=== PATIENT | female | born 1930 | race African-American/Black ===

== ENCOUNTER 2017-07-26 11:12 | Day surgery (SDC) | payer MEDICARE ==
[2017-07-25 13:39] VITALS: BMI 24.5
[2017-07-26] MEDS ORDERED: Midazolam HCl 2 mg/2 ml Vial ONE (12:42)
[2017-07-26] MEDS ORDERED: Fentanyl 100 MCG/2 ML VIAL ONE (12:42)
[2017-07-26 13:04] LABS: #Lymphocytes 1.2 thou/uL (1.20-3.40); #Monocytes 0.4 thou/uL (0.11-0.59); %Basophils 0.6 % (0.0-1.0); %Eosinophils 0.4 % (0.0-10.0); %Lymphocytes 21.7 % (21.0-51.0); %Monocytes 7.7 % (0.0-10.0); %Neutrophils 69.5 % (42.0-75.0); Hemoglobin 11.8 g/dL (12.0-16.0); Mean Corpuscular HGB CONC 32.2 g/dL (32.0-36.0); Mean Corpuscular Hemoglobin 31.5 pg (27.0-31.0); Mean Corpuscular Volume 97.9 fl (81.0-99.0); Mean Platelet Volume 7.3 fL (7.4-10.4); Platelet Count 195 thou/uL (130-400); Red Blood Cell (RBC) Count 3.75 mill/uL (4.20-5.40); White Blood Cell (WBC) Count 5.7 thou/uL (4.8-10.8)
[2017-07-26 13:09] LABS: INR-International Normal Ratio 1.2; PTT 34.1 SEC (22.9-36.1); Prothrombin Time 15.5 SEC (12.0-14.7)
[2017-07-26 13:25] LABS: Anion Gap 10 mmol/L (10-20); BUN (Urea Nitrogen) 18 mg/dL (9.8-20.1); Calc. Creatinine Clearance 39 mL/min (70-130); Calcium 9.7 mg/dL (7.8-10.44); Carbon Dioxide 27 mmol/L (23-31); Chloride 105 mmol/L (98-107); Estimated GFR-MDRD 66; Glucose 105 mg/dL (83-110); Potassium 4.3 mmol/L (3.5-5.1); Sodium 138 mmol/L (136-145)
[2017-07-26] MEDS ORDERED: Diprivan 40 ML ONE (13:32)
[2017-07-26] MEDS ORDERED: PHENYLEPHRINE-NS 100 MCG/ML 10 ML SYRINGE ONE (14:16)
[2017-07-26] MEDS ORDERED: Ondansetron HCl/PF 4 MG/2 ML Vial ONE (14:16)
[2017-07-26] MEDS ORDERED: Propofol 200 MG/20 ML VIAL ONE (14:16)
[2017-07-26] MEDS ORDERED: DOPamine 400 MG/D5W 250 ML 250 ML ONE (14:56)
[2017-07-26] MEDS ORDERED: Heparin 10,000 UNITS/1 ML VIAL ONE (14:56)
--- NOTE | 2017-07-26 15:56 | ECHO ---
REASON FOR PROCEDURE: The patient presented with sustained atrial flutter. She was placed on oral anticoagulation, it was relatively recent and has risk features including ----- for clots. Here for JEANNE to prove otherwise. PROCEDURE: The patient received deep sedation by Anesthesia specialist. After adequate sedation achieved, the s tandard transesophageal echocardiogram probe was passed into the esophagus without difficulty. Samina nt tolerated procedure well, no complications. RESULTS: Left atrium is moderately enlarged about 5 cm in horizontal diameter. Left atrial appendage well visu alized. Contains no clot, but a spontaneous echo contrast was seen throughout the left appendage. Agustín ocities up to 50 cm per second which is adequate. The left ventricular function is a near normal at 50-55% with no wall motion abnormalities seen. The mitral valve has trivial regurgitation only. The right-sided chambers are nondilated. Mild tricuspid regurgitation seen with a peak TR velocity is ab out 2.2 meters per second. Aortic valve has three leaflets, mild sclerosis, but not stenotic. No si gnificant regurgitation seen either. The pulmonary valve also noted and appear significantly regurg itant. The pericardial space is without effusion. The visualized portion of the ascending aorta abo ut 3.2 cm in diameter. The descending aorta shows signs of atherosclerotic disease, but no sessile at heroma is seen. CONCLUSION: 1. No intracardiac clots, but spontaneous echo contrast is seen. 2. Moderate left atrial enlargement. 3. Near normal left ventricular function about 50-55%, improved from prior studies. 4. Mild tricuspid regurgitation without evidence of pulmonary hypertension. 5. No other valvular heart disease is identified. PLAN: 1. Proceed with ablation.
--- NOTE | 2017-07-28 09:19 | EKG ---
Test Reason : PREOP Blood Pressure : / mmHG Vent. Rate : 085 BPM Atrial Rate : 242 BPM P-R Int : 000 ms QRS Dur : 080 ms QT Int : 350 ms P-R-T Axes : 000 -14 -55 degrees QTc Int : 416 ms Atrial flutter with variable A-V block Nonspecific ST and T wave abnormality Abnormal ECG No previous ECGs available Confirmed by ESTRELLA RANGEL ([id number]) on 07/28/2017 9:19:06 AM Referred By: GUSTAVO Confirmed By:ESTRELLA RANGEL
--- NOTE | 2017-07-29 07:49 | CCLSPC ---
ELECTROPHYSIOLOGY STUDY AND RADIOFREQUENCY ABLATION REPORT DATE OF SERVICE: 07/26/2017 REFERRING PHYSICIAN: Anders Salas M.D. REASON FOR PROCEDURE: Ms. Beltrán is an 87-year-old woman with history of newly found atrial flutter which is persisting. She underwent JEANNE prior to procedure and was seeing no intracardiac clots and improvement of LV function to near normal range, hence rate controlled. She has been on Xarelto up until the procedure, recently started. PROCEDURE IN DETAIL: The patient received deep sedation by Anesthesia specialist. After adequate level of sedation achieved in the right femoral vein , this area was prepped, draped and anesthetized in the usual fashion. The right femoral vein was accessed after lidocaine anesthesia with ultrasound guidance x2, two 8 Turkish short sheaths were introduced. With a Decapolar CS catheter was advanced to the RV, RA, and His bundle and eventually the CS position. Pacing and mapping and recording were performed in each location. Following findings were noted. Baseline rhythm was atrial flutter. The cycle length was 247 milliseconds. Overdrive pacing from the CS proximal and CS distal locations were performed demonstrating short post-pacing interval from the proximal CS and long from the lateral CS suggestive of right atrial origin of the atrial flutter. Following that, a ThermoCool STSF catheter was advanced to the right atrium and 3D mapping of the right atrium was obtained. Following that, cavotricuspid isthmus ablation was performed, which promptly terminated the atrial flutter. With proximal CS spacing, activation mapping was proving transisthmus block with transit time increased from 50 milliseconds to over 200 milliseconds. The transisthmus times were most prolonged adjacent to the ablation line and progressively shortened moving the catheter laterally suggestive of complete transisthmus unilateral block. Following that, baseline EP study was performed. Corrected sinus node recovery time was 165. Wenckebach cycle length is 430. RV Wenckebach cycle length 300 milliseconds, HV interval did not change about 35 milliseconds. No dual AV amol physiology was observed. The AV ERP was 600 to 360. VA pacing resulted retrograde Wenckebach cycle length 300 milliseconds. Central retrograde activation was noted. Following that, burst atrial pacing was performed. No reinduction of original present atrial flutter was seen. On the other hand, more rapid about 200 milliseconds cycle length atypical flutter was inducible which was attempted to be burst terminated, but further atypical atrial flutters were induced and were evntually cardioverted with a 100J shock. Eventually, this was cardioverted back to normal rhythm. With proximal CS spacing, the transisthmus block was also ascertained on dopamine. CONCLUSION: 1. Typical atrial flutter on presentation. 2. Cavotricuspid isthmus ablation terminates atrial flutter. 3. With aggressive atrial pacing, further atrial tachyarrhythmias are seen, but they are not presenting arrhythmia. PLAN: Continue Xarelto and continue monitoring, follow up in the office. POS: KALLI AMANDA
== END 2017-07-26 20:06 | disposition home or self-care (01) ==
LOC: EEVIPCON 11:12 → CCL 11:12
PROVIDERS: ATTEND Internal Medicine Cardiovascular Disease
DX: I48.3 Typical atrial flutter (principal); Z79.84 Long term (current) use of oral hypoglycemic drugs; Z79.01 Long term (current) use of anticoagulants; Z79.899 Other long term (current) drug therapy; Z88.2 Allergy status to sulfonamides; Z98.41 Cataract extraction status, right eye; Z98.42 Cataract extraction status, left eye; Z90.49 Acquired absence of other specified parts of digestive tract; Z98.890 Other specified postprocedural states
CPT/HCPCS: 76942; 80048; 85025; 85610; 85730; 92960; 93005; 93312; 93613; 93623; 93653; C1730 ×2; C1769; 93010; J1265; J1644; J2250; J2405; J2704; J3010

== ENCOUNTER 2019-03-05 15:39 | Outpatient (CLI) | payer MEDICARE ==
--- NOTE | 2019-03-05 16:11 | ULT ---
EXAM: Left lower extremity venous Doppler HISTORY: Left lower extremity pitting edema from the level of the knee to the foot. FINDINGS: Grayscale, color-flow, Doppler evaluation, spectral analysis of the left lower extremity venous struc tures is performed with 2-D imaging. The left common femoral, superficial femoral, popliteal, posterior tibial, proximal greater saphenous and profunda femoral veins are imaged. There is limited evaluation of the mid and distal superficial femoral vein on grayscale imaging limit ing evaluation for nonocclusive DVT, but there is flow within these veins without evidence of occlusive DVT. There is otherwise normal luminal compressibility, flow, and augmentation in the visua lized deep venous structures of the left lower extremity. Mild subcutaneous edema is seen at the level of the knee and at the ankle. IMPRESSION: 1. Limited evaluation of the mid and distal left lower extremity superficial femoral veins on graysca le imaging which limits evaluation for nonocclusive thrombus. However, there is flow within these veins. There is otherwise no evidence of a DVT involving the remaining visualized deep venous structu res of the left lower extremity. 2. Subcutaneous edema left lower extremity.
== END 2019-03-05 15:40 | disposition home or self-care (01) ==
LOC: SCSULT 15:39
PROVIDERS: ATTEND Internal Medicine
DX: M71.22 Synovial cyst of popliteal space [Baker], left knee (principal); I87.2 Venous insufficiency (chronic) (peripheral); R60.0 Localized edema